=== PATIENT | female | born 1980 | race Caucasian/White ===

== ENCOUNTER → 2018-09-26 | Outpatient (CLI) | payer BC, SELFPAY ==
[2018-09-26 10:17] LABS: Erythrocyte Sedimentation Rate 33 mm/hr (0-20)
[2018-09-26 10:24] LABS: Absolute Lymphocyte Count 1.67 X10^3/ul (0.83-4.51); Absolute Neutrophil Count 3.2 X10^3/uL (2.0-7.7); Basophil# 0.05 X10^3/uL; Basophil% 0.9 % (0-1); Differential Indicated SCAN CRITERIA MET; Eosinophil# 0.27 X10^3/uL; Eosinophils% 4.8 % (0-5); Hematocrit 30.2 % (37-47); Lymphocyte # 1.67 X10^3/ul (4.0); Lymphocyte % 29.6 % (19-41); Mean Corp Hgb Conc 29.8 g/gl (32-36); Mean Corpuscular Volume 73.8 fL (81-99); Mean Platelet Vol. 9.3 fl (6.2-12.0); Monocyte# 0.48 X10^3/uL; Monocyte% 8.5 % (0-10); Neutrophil # 3.17 X10^3/uL (2.7-7.7); Neutrophil % 56.2 % (47-70); POSITIVE COUNT NO; POSITIVE DIFFERENTIAL NO; POSITIVE MORPHOLOGY YES; Platelet Count 327 K/mm3 (150-450); RBC Distribution Width CV 17.4 % (11.6-14.6); Red Blood Count 4.09 M/mm3 (4.2-5.4); White Blood Count 5.6 K/mm3 (4.4-11.0)
[2018-09-26 10:47] LABS: Vitamin D,25 Hydroxy 18.4 ng/mL (29.95-100.01)
[2018-09-26 10:56] LABS: ALB/GLOB Ratio 0.8 RATIO (0.9-2.4); AST(SGOT) 10 U/L (15-37); Alanine Aminotransfer ALT/SGPT 16 U/L (13-56); Albumin, Serum 3.2 g/dL (3.2-5.0); Alkaline Phosphatase 75 U/L (45-117); Anion Gap 7 (5-15); BUN 10 mg/dL (7-18); BUN/Creat Ratio 14.3 RATIO (10-20); Calcium,Total 8.5 mg/dL (8.5-10.1); Chloride 109 mmol/L (98-107); EST Glomerular Filtration Rate 99 mL/min (>60); Est Glom Filt Rate - Afr Amer 120 mL/min (>60); Globulin 4.2 g/dL (2.2-4.2); Glucose 81 mg/dL (74-106); Potassium 4.2 mmol/L (3.5-5.1); Protein, Total 7.4 g/dL (6.4-8.2); Sodium Level 140 mmol/L (136-145); Thyroid Stim Hormone (TSH) 1.78 uIU/mL (0.358-3.74)
[2018-09-26 10:59] LABS: Anisocytosis 2+; Differential Comment SCANNED; Hypochromasia 1+; Microcytosis 2+
== END | disposition home or self-care (01) ==
PROVIDERS: Family Provider Family Medicine; PCP Family Medicine; Referring Provider Family Medicine; Visit Provider Family Medicine
DX: R21 Rash and other nonspecific skin eruption (principal)
CPT/HCPCS: 36415; 80053; 82306; 84443; 85025; 85652

== ENCOUNTER 2018-12-16 06:17 | Emergency (ER) | payer BC, SELFPAY ==
[2018-12-16 06:19] VITALS: BP 178/101; PULSE 112; RESP 18; TEMP 37.7; O2SAT 98; BMI 47.2
[2018-12-16 06:23] VITALS: BP 178/99; PULSE 114; RESP 19; TEMP 37.7; O2SAT 98
[2018-12-16 06:34] VITALS: BP 168/82; PULSE 110; RESP 19; O2SAT 98
--- NOTE | 2018-12-16 06:36 | CT_ITS ---
STUDY: CT ABDOMEN AND PELVIS WITHOUT CONTRAST REASON FOR EXAM: Female, 38 years old. Lower abdominal pain. RADIATION DOSAGE (If Supplied By Facility): CTDIvol = ( 23.96 ) mGy, DLP = ( 1382.89 ) mGycm TECHNIQUE: Transaxial images were obtained from the dome of the diaphragm to the symphysis pubis without oral contrast, and without intravenous contrast. Sagittal and coronal images were reconstructed. Individualized dose optimization techniques were used for this CT. COMPARISON: None. FINDINGS: Mild increase interstitial markings at the lung bases suggestive of atelectasis. The visualized portions of the heart are within normal limits. Normal liver. Normal gallbladder and extrahepatic biliary system. Normal spleen. Normal pancreas. Normal bilateral adrenal glands. 2 small nonobstructive intrarenal calculi are seen in the lower pole calyx of the right kidney the larger measures 3.3 mm. Normal left kidney. There is a small hiatal hernia. Normal small intestine. There are scattered colonic diverticula consistent with diverticulosis. The appendix is visualized and appears normal. Normal abdominal aorta. Normal inferior vena cava. There is borderline retroperitoneal lymphadenopathy with enlarged nodes no greater than 10mm in the short axis diameter. Normal urinary bladder. There is evidence of bilateral tubal ligation. Small amount of free fluid is seen in the cul-de-sac. Mild inflammatory changes are seen in the region of the cul-de-sac. Normal abdominal wall. There are small benign-appearing bilateral inguinal lymph nodes. Normal osseous structures. CT/Abdomen/Pelvis without Cont IMPRESSION: Mild degree of increased markings at the lung bases suggestive of bibasilar atelectasis. Small amount of free fluid in the cul-de-sac with increased markings in the surrounding fat. Correlation with pelvic ultrasound is recommended. There are 2 small nonobstructive intrarenal calculi in the lower pole calyx of the right kidney. Electronically Signed: Akin Callaway, at 8:08 EDT , Service support ,
[2018-12-16 06:47] LABS: Absolute Lymphocyte Count 0.88 X10^3/uL (0.83-4.51); Absolute Neutrophil Count 20.3 X10^3/uL (2.0-7.7); Basophil# 0.04 X10^3/uL; Basophil% 0.2 % (0-1); Eosinophils% 0.5 % (0-5); Hematocrit 32.2 % (37-47); Hemoglobin 9.5 g/dL (12.0-15.0); Lymphocyte # 0.88 X10^3/ul (4.0); Mean Corp Hgb Conc 29.5 g/dL (32-36); Mean Corpuscular Hgb 22.2 pg (27.0-32.0); Mean Corpuscular Volume 75.2 fL (81-99); Mean Platelet Vol. 9.2 fl (6.2-12.0); Monocyte# 0.61 X10^3/uL; Monocyte% 2.8 % (0-10); NRBC Flagged by Analyzer 0 % (0-5); Neutrophil # 20.28 X10^3/uL (2.7-7.7); Neutrophil % 91.9 % (47-70); POSITIVE DIFFERENTIAL YES; Platelet Count 390 K/mm3 (150-450); RBC Distribution Width SD 45.7 fl (35.1-43.9); Red Blood Count 4.28 M/mm3 (4.2-5.4)
[2018-12-16] MEDS: Morphine 4 MG/ML Syringe IV (06:47)
[2018-12-16] MEDS: 0.9% Normal Saline 1,000 ML 125 ML IV (06:47)
[2018-12-16] MEDS: Ondansetron 4 MG/2 ML Vial IV (06:47)
[2018-12-16 06:48] LABS: Differential Indicated SCAN CRITERIA MET
--- NOTE | 2018-12-16 06:59 | ED.VISSUMM ---
- ER Visit Summary Date of Service: 12/16/18 Chief Complaint: [Abdominal pain] History of Present Illness: The patient is a 38 F [since the emergency room with complaint of abdominal pain that started 2 days ago. Patient rates her pain as a 7 or 8 out of 10. Patient describes the pain is mostly in the lower abdomen however she does have some discomfort and soreness in the upper abdomen as well. Patient had nausea and vomiting associated with it. She denies any dysuria. She denies any fevers. Patient was seen by her SALES REPRESENTATIVE ADVERTISING about a month ago and had an ultrasound which was unremarkable and thought she might have endometriosis. Patient states this pain is not associated with her. However in her last menstrual period was December 06. She has had prior C-sections x2 and a tubal ligation.] Physical Examination: [HEJU-PERRLA, EOMI. Cranial nerves II through XII grossly intact. TMs clear. Mucous membranes moist. No adenopathy. Cardiovascular-regular rate and rhythm without murmur or ectopy Lungs-clear to auscultation, chest wall stable without crepitus or subcu emphysema Abdomen-normoactive bowel sounds, soft. Patient has diffuse tenderness to the lower abdomen with some guarding. She has tenderness in the suprapubic region and left lower quadrant. She has minimal discomfort in the epigastric region. Extremities-intact ?4, normal range of motion, normal pulses, atraumatic] Test Results: [CBC with differential obtained showed a white blood cell count of 22,000 and a hemoglobin 9.5, hematocrit 32, placed 390. Chemistries and LFTs pending. CT scan of the abdomen pelvis pending] Emergency Department Course and Treatment: [He was medicated with morphine and Zofran] Treatment Plan: [Care of patient turned over to the morning physician awaiting lab results, CT scan results, and final disposition] Disposition: [Pending] Impression: [Abdominal pain] This note was generated with Payment plugin dictation software. It may contain incorrect words, spelling, and punctuation that were not noted in review of the chart prior to signing ED Disposition - Plan for ED Patient: Referrals: Logan Colorado MD [Primary Care Provider] -
[2018-12-16 07:04] LABS: ALB/GLOB Ratio 0.7 RATIO (0.9-2.4); AST(SGOT) 8 U/L (15-37); Alanine Aminotransfer ALT/SGPT 13 U/L (13-56); Albumin, Serum 3.1 g/dL (3.2-5.0); Alkaline Phosphatase 81 U/L (45-117); Anion Gap 7 (5-15); BUN 10 mg/dL (7-18); BUN/Creat Ratio 12.1 RATIO (10-20); Calcium,Total 8.6 mg/dL (8.5-10.1); Chloride 107 mmol/L (98-107); Creatinine, Serum 0.83 mg/dL (0.55-1.02); EST Glomerular Filtration Rate 81 mL/min (>60); Est Glom Filt Rate - Afr Amer 98 mL/min (>60); Estimated Creatinine Clearance 90.89 ml/min; Globulin 4.7 g/dL (2.2-4.2); Glucose 101 mg/dL (74-106); Lipase 176 U/L (73-393); Potassium 3.7 mmol/L (3.5-5.1); Protein, Total 7.8 g/dL (6.4-8.2); Sodium Level 139 mmol/L (136-145)
[2018-12-16 07:09] LABS: Internal QC Validated? YES +Cl - CLEAR BKGD; Pregnancy, Serum, hCG Quali. NEGATIVE Negative
[2018-12-16 07:19] LABS: Lactic Acid 1.4 mmol/L (0.4-2.0)
[2018-12-16] MEDS: HYDROmorphone 1 MG/ML Syringe IV ×2 (07:42→11:43)
--- NOTE | 2018-12-16 08:14 | US_ITS ---
STUDY: ULTRASOUND OF THE FEMALE PELVIS - COMPLETE REASON FOR EXAM: Female, 38 years old. 2 day history of bilateral pelvic pain. LMP: December 06, 2018. TECHNIQUE: Transabdominal and Transvaginal TECHNICAL QUALITY: Adequate. COMPARISON: Comparison is made with prior CT scan the abdomen and pelvis done earlier in the day. FINDINGS: The uterus is anteverted and is in a midline position. The uterus measures 11.1 cm x 5.8 cm x 4.8 cm. There is a Nabothian cyst of the cervix. The endometrium measures 9 mm in thickness, and is hyperechoic. There is no demonstrated endometrial mass. There is no demonstrated myometrial mass. I.U.D. - The patient does not have an I.U.D. The right ovary is visualized. The right ovary measures 3.9 cm x 3.5 cm x 2.2 cm. There is no right ovarian cyst or ovarian mass. There is no visualized right adnexal mass or complex lesion. There is normal arterial and normal venous vascularity. The left ovary is visualized. The left ovary measures 4.6 cm x 4.5 cm x 3.0 cm. There is a 2.2 cm x 1.6 cm x 1.8 cm cyst in the right ovary. There is no visualized left adnexal mass or complex lesion. There is normal arterial and normal venous vascularity. There is no fluid in the cul-de-sac. The pre void volume of the bladder was 85 ml. Polycystic ovary disease: No. US/Transvaginal Non- IMPRESSION: 2.2 cm x 1.6 x 1.8 cm cyst in the left ovary. No other abnormality is seen. Electronically Signed: Akin Callaway, at 10:04 EDT , Service support ,
[2018-12-16 09:43] VITALS: BP 160/82; PULSE 84; RESP 18; O2SAT 97
[2018-12-16 10:30] LABS: Red Blood Cells-Urine 0 SEEN /hpf (0-5)
[2018-12-16 10:34] LABS: Color, Urine Amber (Yellow); Glucose, Dipstick Normal (Normal); Ketone-Dipstick Negative (Negative); Leukocyte Esterase-Dipstick 25 /ul (Negative); Nitrite-Dipstick Negative (Negative); Occult Blood-Urine 10 /ul (Negative); Protein-Dipstick 30 mg/dl (Negative); Urine Bilirubin Dipstick Negative (Negative); Urine Clarity Sl. Cloudy (Clear); Urine Urobilinogen Normal (Normal)
[2018-12-16 10:49] LABS: Squamous Epithelial Cells - UA 5-10 SEEN /hpf (5-10); White Blood Cells 0-5 SEEN /hpf (0-5)
[2018-12-16 10:50] LABS: Bacteria RARE /hpf (None Seen); Mucous, Urine 1+ /hpf (<or=2+)
--- NOTE | 2018-12-16 10:56 | NURSING ---
DR FORTE PAGED AND RETURNED CALL
--- NOTE | 2018-12-16 11:00 | NURSING ---
PAGED DR IRELAND
--- NOTE | 2018-12-16 11:19 | ED.DEP ---
ED Disposition - Plan for ED Patient: Disposition: Home or Assisted Living Prescriptions: Ciprofloxacin [Cipro] 500 mg PO BID #14 tab Prescription Printed metroNIDAZOLE [Flagyl] 500 mg PO Q8H #21 tab Prescription Printed Oxycodone HCl/Acetaminophen [Percocet 5/325] 1 tab PO Q6H PRN PRN 3 Days #12 tab PRN Reason: Pain Prescription Printed Ondansetron [Zofran Odt] 4 mg PO Q6H PRN PRN #10 tab PRN Reason: Nausea Prescription Printed Referrals: Logan Colorado MD [Primary Care Provider] - (in 1-2 days for repeat exam )
--- NOTE | 2018-12-16 11:32 | ED.RN ---
pt nauseated. has consumed 3 glasses of water in short period of time
[2018-12-16 12:51] VITALS: BP 138/74; PULSE 61; RESP 15; O2SAT 99
== END 2018-12-16 12:54 | disposition home or self-care (01) ==
PROVIDERS: Emergency Medicine; Emergency Provider Emergency Medicine; Family Provider Family Medicine; PCP Family Medicine
DX: K52.9 Noninfective gastroenteritis and colitis, unspecified (principal); R10.9 Unspecified abdominal pain; K57.30 Diverticulosis of large intestine without perforation or abscess without bleeding; Z72.0 Tobacco use
CPT/HCPCS: 74176; 76830; 80053; 81001; 83605; 83690; 84703; 85025; 96361; 96374; 96375; 96376; 99284; J7030; A4216; J2405

== ENCOUNTER 2018-12-19 09:31 | Emergency (ER) | payer BC, SELFPAY ==
[2018-12-19 09:33] VITALS: BP 167/104; PULSE 127; RESP 18; TEMP 36.6; O2SAT 99; BMI 46.0
[2018-12-19 09:45] VITALS: TEMP 37.4
--- NOTE | 2018-12-19 09:46 | CT_ITS ---
STUDY: CT ABDOMEN AND PELVIS WITH CONTRAST REASON FOR EXAM: Female, 38 years old. Lower abdominal pain and fever. RADIATION DOSAGE (If Supplied By Facility): CTDIvol = ( 23.72 ) mGy, DLP = ( 1458.46 ) mGycm TECHNIQUE: Transaxial images were obtained from the dome of the diaphragm to the symphysis pubis with oral contrast. 100 IV/Oral Isovue 300 was administered. Sagittal and coronal images were reconstructed. Individualized dose optimization techniques were used for this CT. COMPARISON: Comparison is made with prior study dated December 16, 2018. FINDINGS: Since prior study, there has been a progression in the right lower lobe infiltrate. The visualized portions of the heart are within normal limits. Small amount of the perihepatic fluid is seen at this time. Mildly distended gallbladder. A small amount of fluid is seen in the hepatorenal space. Normal spleen. Normal pancreas. Normal bilateral adrenal glands. 2 nonobstructive right intrarenal calculi. Normal left kidney. Normal visualized stomach. Normal small intestine. Normal colon. There is non-visualization of the appendix. Normal abdominal aorta. Normal inferior vena cava. There is borderline retroperitoneal lymphadenopathy with enlarged nodes no greater than 10mm in the short axis diameter. Increased markings are seen in the root of the mesentery as well as mid abdomen worse in the left lower quadrant adjacent to small bowel loops. An inflammatory process should be ruled out. Filling defects are seen in the right hemicolon most likely secondary to fecal material. Normal urinary bladder. Small amount of free fluid in the pelvis. There is enlargement of the ovaries bilaterally. There is evidence of bilateral tubal ligation. Normal abdominal wall. Normal osseous structures. CT/Abdomen/Pelvis WITH Contrast IMPRESSION: Progressive infiltrate in the right lower lobe. Small amount of perihepatic fluid as well as fluid in the hepatorenal space. Mildly distended gallbladder. Correlation with ultrasound is recommended. Nonspecific increased markings in the mesentery in the mid and left mid abdomen. Small amount of free fluid in the cul-de-sac. Prominence of the ovaries bilaterally. Electronically Signed: Akin Callaway, at 12:47 EDT , Service support ,
--- NOTE | 2018-12-19 09:49 | ED.DCSUM_ITS ---
History of Present Illness Chief Complaint: Abd Pain Informant: Patient, Family Onset: Days - Diarrhea and left lower quadrant pain started December 14, Month(s) - Initial episode 1 month ago, white lower quadrant/adnexal region Context: Sudden Onset Timing: Continuous Quality: 103.0 ?F, nausea, diarrhea Location: Initially left lower quadrant to right lower quadrant to epigastrium Current Severity: Moderate Maximum Severity: Severe Worsened by: Walking Relieved by: Nothing Associated Symptoms: Persistent fever and pain Narrative: This is a 38-year-old woman who was seen 1 month ago for right-sided abdomen/pelvic pain. She was seen by her cleaning manager who performed a pelvic exam. The pelvic exam was unremarkable according the patient. She apparently went to a water park this past weekend. Everyone in the family had diarrhea. She developed left lower quadrant pain that radiates to the right lower quadrant with elevated temperature. She was seen on December 16, which is a Saturday. Her work-up was marked for an elevated white count and inflammatory changes noted on CAT scan. Ultrasound revealed a cyst. Case was discussed with CONFIGURATION DEVELOPER and PCP. Patient was seen by PCP today and sent to the emergency department. His note was read. He recommended internal exam on his office note. Mother states she had a 16 pound weight loss since onset of pain 1 month ago. She denies night sweats. She reports persistent diarrhea. She has not noted any blood in her diarrhea. Patient states she has had persistent temperature to 103 degrees. The upper abdominal pain resolved. The lower abdominal pain was getting better. Today it is worse. Prior similar symptoms: Yes Recent Illness/Hospitalization: Yes - Past Medical History (1) No significant past medical history Status: Acute Past Medical History - Allergies and Home Meds Allergies/Adverse Reactions: Allergies peanut Adverse Reaction (Verified 12/19/18 09:32) Nausea/Vom/Diarrhea Primary Care Physician: Logan Colorado MD [Primary Care Provider] - Surgical History: noncontributory Lives: Spouse/ Significant Other, With Family Smoking Status: Former smoker Alcohol: Rare Drugs: None Review of Systems General: Reports: Chills, Fever, Malaise, Weight loss Eyes: Denies: Visual changes - bilaterally, Blurred Vision - bilaterally, Diplopia ENT: Reports: - - Lanes of thirst and dry mouth Cardiovascular: Denies: Chest pain, Palpitations Respiratory: Denies: Dyspnea, Cough, Dyspnea on exertion Gastrointestinal: Reports: Abdominal pain, Nausea, Diarrhea. Denies: Vomiting, Constipation, Melena, Hematochezia Genitourinary: Denies: Dysuria, Hematuria, Frequency Musculoskeletal: Denies: Myalgias, Arthralgias, Neck pain, Back pain, Extremity Pain Skin: Denies: Rash, Abscess, Abrasions, Wounds Neurological: Denies: Headache, Weakness, Numbness Hematologic: Denies: Easy bruising, Easy bleeding Allergy: Denies: Uticaria, Swelling of the mouth, Swelling of the tongue Physical Exam Vital Signs/Narrative: Vital Signs Temp Pulse Resp BP Pulse Ox 12/19/18 09:45 99.3 F H 12/19/18 09:33 97.9 F 127 H 18 167/104 H 99 Inital Vital Signs reviewed: Yes General: Well nourished, Well developed, Obese, Acute Distress Head: Normocephalic, Atraumatic Eyes: Perrl, EOMI. Negative for: Pale conjunctiva, Scleral icterus, - ENT: No rhinorrhea, Dry mucous membranes Neck: Supple, Nontender, No lymphadenopathy, No JVD, - Cardiovascular: Regular rhythm, No murmurs, Normal S1, Normal S2, Tachycardia Respiratory: No distress, CTA bilaterally, Chest nontender Abdomen: Soft, No masses, Tender, Guarding, Rebound tenderness, Hypoactive bowel sounds. Negative for: Nontender, Nondistended, Normal bowel sounds, Hepatomegaly, Splenomegaly, Mass Rectal: Deferred Back: Nontender, Normal Inspection. Negative for: CVA tenderness, Spinal tenderness Extremities: Nontender, No edema Skin: Normal color, No rash, No Trauma. Negative for: Cyanosis, Diaphoresis, Jaundice Neurological: Alert, Oriented x3, Cranial nerves II-XII grossly intact, Normal Strength, Normal Sensation Psychological: Normal affect, Normal Mood Diagnostic/Tx/Re-eval Impressions Abdomen/Pelvis CT 12/19/18 09:46 IMPRESSION: Progressive infiltrate in the right lower lobe. Small amount of perihepatic fluid as well as fluid in the hepatorenal space. Mildly distended gallbladder. Correlation with ultrasound is recommended. Nonspecific increased markings in the mesentery in the mid and left mid abdomen. Small amount of free fluid in the cul-de-sac. Prominence of the ovaries bilaterally. Electronically Signed: Akin Callaway, at 12:47 EDT , Service support , 12/19/18 09:46 Abdomen/Pelvis WITH Contrast [CT] Stat Laboratory Results 12/19/18 12/19/18 12/19/18 10:08 10:08 10:08 WBC 11.5 H RBC 3.89 L Hgb 8.7 L Hct 28.6 L MCV 73.5 L MCH 22.4 L MCHC 30.4 L RDW Std Deviation 44.5 H RDW Coeff of Herson 16.7 H Plt Count 315 MPV 10.3 Immature Gran % (Auto) 0.700 Neut % (Auto) 85.4 H Lymph % (Auto) 6.2 L Zavala % (Auto) 5.1 Eos % (Auto) 2.3 Baso % (Auto) 0.3 Absolute Neuts (auto) 9.8 H Absolute Lymphs (auto) 0.71 L Nucleated RBC % 0.2 Sodium 134 L Potassium 3.5 Chloride 100 Carbon Dioxide 26.0 Anion Gap 8 BUN 11 Creatinine 0.85 Estim Creat Clear Calc 88.75 Est GFR (MDRD) Af Amer 95 Est GFR (MDRD) Non-Af 79 BUN/Creatinine Ratio 13.0 Glucose 90 Lactic Acid 1.2 Calcium 8.4 L White count has improved. There is no evidence of renal failure. Lactate is normal. There is an infiltrate right lower lobe since prior study. Will add Augmentin to cover organisms for community acquired pneumonia. Inflammatory changes are slightly worse. There is no evidence of diverticulitis. There is no evidence of abscess. - Medical Decision Making She is tachycardic and tachypneic in spite of what was documented by triage nurse. She is not febrile. She does have peritoneal findings. Since the work- up on Saturday was not definitive however there was abnormal inflammatory changes noted with a high white count will repeat CAT scan as well as blood work. She received IV fluids. Antibiotics were not administered since she is on appropriate antibiotics for diarrhea. Stool for enteric pathogens was ordered since she is still having diarrhea. In my professional medical opinion the pelvic exam is not warranted since she has GI symptoms had inflammatory changes noted on CAT scan that were felt to be GI and not gynecologic. Patient was prescribed Augmentin. Since her numbers are better she has not vomited during her stay and is resting comfortably when she was reexamined at 1405 will discharge to home. Mother had many questions and voiced her frustrations. Mother was informed since things are getting better it is not inappropriate to send her home. ED Disposition - Plan for ED Patient: Disposition: Home or Assisted Living Diagnosis: Community acquired pneumonia, Colitis, acute Instructions: DIARRHEA, Unk Cause (Adult) Report Pendg, PNEUMONIA (Adult) Prescriptions: Amox/Clavulanate Tablet [Augmentin Tablet] 875 mg PO Q12H #14 tab Transmission Status: Pending to [facility]/pharmacy #[id number] Oxycodone HCl/Acetaminophen [Percocet 5/325] 1 tablet PO Q6H PRN PRN 3 Days #12 tablet PRN Reason: Pain Transmission Status: Received by [facility]/pharmacy #[id number] Referrals: Logan Colorado MD [Primary Care Provider] - 3-5 Days if not improving Additional Instructions: Your prescriptions were electronically transmitted to [facility] pharmacy located on back [facility]
[2018-12-19] MEDS: 0.9% Normal Saline 1,000 ML 1000 ML IV (10:13)
[2018-12-19] MEDS: Ondansetron 4 MG/2 ML Vial IV (10:13)
[2018-12-19] MEDS: Morphine 4 MG/ML Syringe IV ×2 (10:16→12:42)
[2018-12-19 10:19] LABS: Absolute Lymphocyte Count 0.71 X10^3/uL (0.83-4.51); Absolute Neutrophil Count 9.8 X10^3/uL (2.0-7.7); Basophil# 0.04 X10^3/uL; Basophil% 0.3 % (0-1); Eosinophil# 0.26 X10^3/uL; Eosinophils% 2.3 % (0-5); Hematocrit 28.6 % (37-47); Hemoglobin 8.7 g/dL (12.0-15.0); Lymphocyte # 0.71 X10^3/ul (4.0); Lymphocyte % 6.2 % (19-41); Mean Corp Hgb Conc 30.4 g/dL (32-36); Mean Corpuscular Hgb 22.4 pg (27.0-32.0); Mean Corpuscular Volume 73.5 fL (81-99); Mean Platelet Vol. 10.3 fl (6.2-12.0); Monocyte# 0.59 X10^3/uL; Monocyte% 5.1 % (0-10); NRBC Flagged by Analyzer 0.2 % (0-5); Neutrophil # 9.81 X10^3/uL (2.7-7.7); Neutrophil % 85.4 % (47-70); Platelet Count 315 K/mm3 (150-450); RBC Distribution Width CV 16.7 % (11.6-14.6); RBC Distribution Width SD 44.5 fl (35.1-43.9); Red Blood Count 3.89 M/mm3 (4.2-5.4); White Blood Count 11.5 K/mm3 (4.4-11.0)
[2018-12-19 10:31] LABS: Anion Gap 8 (5-15); BUN 11 mg/dL (7-18); Calcium,Total 8.4 mg/dL (8.5-10.1); Chloride 100 mmol/L (98-107); Creatinine, Serum 0.85 mg/dL (0.55-1.02); EST Glomerular Filtration Rate 79 mL/min (>60); Est Glom Filt Rate - Afr Amer 95 mL/min (>60); Estimated Creatinine Clearance 88.75 ml/min; Glucose 90 mg/dL (74-106); Potassium 3.5 mmol/L (3.5-5.1); Sodium Level 134 mmol/L (136-145)
[2018-12-19 10:43] LABS: Lactic Acid 1.2 mmol/L (0.4-2.0)
[2018-12-19] MEDS: Amox/Clavulanate 875 MG Tablet PO (14:37)
[2018-12-19 14:55] VITALS: BP 126/91; PULSE 112; RESP 16; O2SAT 98
== END 2018-12-19 14:57 | disposition home or self-care (01) ==
PROVIDERS: Emergency Provider Emergency Medicine; Family Provider Family Medicine; PCP Family Medicine
DX: J18.9 Pneumonia, unspecified organism (principal); K52.9 Noninfective gastroenteritis and colitis, unspecified; E66.9 Obesity, unspecified; Z87.891 Personal history of nicotine dependence
CPT/HCPCS: 74177; 80048; 83605; 85025; 87040; 96361; 96374; 96375; 96376; 99283; J7030; Q9967; A4216; J2405

== ENCOUNTER → 2018-12-25 | Outpatient (CLI) | payer BC, SELFPAY ==
[2018-12-19 09:33] VITALS: BMI 46.0
--- NOTE | 2018-12-25 15:37 | RAD_ITS ---
STUDY: X-RAY CHEST REASON FOR EXAM: Female, 38 years old. Fever, right lung consolidation on prior imaging. TECHNIQUE: PA and lateral views of the chest. COMPARISON: CT abdomen and pelvis December 19, 2018. FINDINGS: Subsegmental density persists in the right lung base, accompanied by some elevation of the right diaphragm. This is likely atelectasis, but infection is difficult to exclude. Fairly similar but lesser atelectasis in the left lung base on CT is not clearly demonstrated here. There is no demonstrated pleural abnormality. Normal size heart. Normal mediastinum and robert. Normal visualized pulmonary arteries. Normal visualized aortic arch and descending thoracic aorta. Normal visualized thoracic spine. Normal visualized ribs, clavicles, and shoulders. There is no demonstrated abnormality of the visualized soft tissue structures of the upper abdomen. RAD/Chest PA and Lateral IMPRESSION: Right base subsegmental atelectasis and elevated right diaphragm again noted. Infection difficult to exclude. Electronically Signed: Pranay Stovall MD at 16:35 EDT , Service support ,
[2018-12-25 17:25] LABS: Absolute Lymphocyte Count 1.45 X10^3/uL (0.83-4.51); Basophil# 0.03 X10^3/uL; Basophil% 0.4 % (0-1); Eosinophil# 0.28 X10^3/uL; Eosinophils% 3.3 % (0-5); Hematocrit 30.1 % (37-47); Hemoglobin 8.7 g/dL (12.0-15.0); Lymphocyte # 1.45 X10^3/ul (4.0); Lymphocyte % 17.3 % (19-41); Mean Corp Hgb Conc 28.9 g/dL (32-36); Mean Corpuscular Hgb 21.6 pg (27.0-32.0); Mean Corpuscular Volume 74.9 fL (81-99); Mean Platelet Vol. 10.6 fl (6.2-12.0); Monocyte# 0.54 X10^3/uL; Monocyte% 6.4 % (0-10); NRBC Flagged by Analyzer 0 % (0-5); Neutrophil # 5.99 X10^3/uL (2.7-7.7); Neutrophil % 71.5 % (47-70); Platelet Count 538 K/mm3 (150-450); RBC Distribution Width CV 17.2 % (11.6-14.6); RBC Distribution Width SD 46.2 fl (35.1-43.9); Red Blood Count 4.02 M/mm3 (4.2-5.4); White Blood Count 8.4 K/mm3 (4.4-11.0)
[2018-12-25 17:49] LABS: ALB/GLOB Ratio 0.6 RATIO (0.9-2.4); AST(SGOT) 17 U/L (15-37); Alanine Aminotransfer ALT/SGPT 11 U/L (13-56); Albumin, Serum 2.7 g/dL (3.2-5.0); Alkaline Phosphatase 60 U/L (45-117); Anion Gap 10 (5-15); BUN 10 mg/dL (7-18); BUN/Creat Ratio 13.6 RATIO (10-20); Calcium,Total 8.6 mg/dL (8.5-10.1); Chloride 103 mmol/L (98-107); Creatinine, Serum 0.74 mg/dL (0.55-1.02); EST Glomerular Filtration Rate 93 mL/min (>60); Est Glom Filt Rate - Afr Amer 112 mL/min (>60); Globulin 4.7 g/dL (2.2-4.2); Glucose 88 mg/dL (74-106); Potassium 3.1 mmol/L (3.5-5.1); Protein, Total 7.4 g/dL (6.4-8.2); Sodium Level 141 mmol/L (136-145)
[2018-12-26 10:35] LABS: Ferritin 36 ng/mL (8-252); Iron 16 ug/dL (50-170); Iron Binding Capacity,Total 273 ug/dL (250-450); PERCENT IRON SATURATION 5.9 % (15.0-55.0)
== END | disposition home or self-care (01) ==
PROVIDERS: Family Provider Family Medicine; PCP Family Medicine; Referring Provider Family Medicine; Visit Provider Family Medicine
DX: J18.1 Lobar pneumonia, unspecified organism (principal); D50.9 Iron deficiency anemia, unspecified; R19.7 Diarrhea, unspecified
CPT/HCPCS: 36415; 71046; 80053; 82728; 83540; 83550; 83735; 85025

== ENCOUNTER → 2018-12-26 | Outpatient (CLI) | payer BC, SELFPAY ==
[2018-12-19 09:33] VITALS: BMI 46.0
[2018-12-31 10:18] LABS: Fats, Neutral Normal (.); Fats, Total Normal (.)
== END | disposition home or self-care (01) ==
LOC: LABSPEC 07:43
PROVIDERS: Family Provider Family Medicine; PCP Family Medicine; Referring Provider Family Medicine; Visit Provider Family Medicine
DX: R19.7 Diarrhea, unspecified (principal)
CPT/HCPCS: 82274; 82705; 83630; 87177; 87209; 87493; 87506

== ENCOUNTER → 2018-12-31 | Outpatient (CLI) | payer BC, SELFPAY ==
[2018-12-19 09:33] VITALS: BMI 46.0
--- NOTE | 2018-12-31 09:49 | RAD_ITS ---
STUDY: X-RAY CHEST REASON FOR EXAM: Female, 38 years old. Epigastric pain TECHNIQUE: PA and lateral views of the chest. COMPARISON: 12/25/2018 FINDINGS: Stable elevation of right hemidiaphragm Stable subsegmental density in the right lung base. There is no demonstrated pleural abnormality. Normal size heart. Normal mediastinum and robert. Normal visualized pulmonary arteries. Normal visualized aortic arch and descending thoracic aorta. Normal visualized thoracic spine. Normal visualized ribs, clavicles, and shoulders. There is no demonstrated abnormality of the visualized soft tissue structures of the upper abdomen. RAD/Chest PA and Lateral IMPRESSION: No interval change Electronically Signed: Pranay Fung MD at 16:55 EDT , Service support ,
[2018-12-31 12:24] LABS: Absolute Lymphocyte Count 1.64 X10^3/uL (0.83-4.51); Absolute Neutrophil Count 5.4 X10^3/uL (2.0-7.7); Basophil# 0.07 X10^3/uL; Basophil% 0.9 % (0-1); Eosinophil# 0.34 X10^3/uL; Eosinophils% 4.3 % (0-5); Hematocrit 30.4 % (37-47); Hemoglobin 8.8 g/dL (12.0-15.0); Lymphocyte # 1.64 X10^3/ul (4.0); Lymphocyte % 20.7 % (19-41); Mean Corp Hgb Conc 28.9 g/dL (32-36); Mean Corpuscular Hgb 21.9 pg (27.0-32.0); Mean Corpuscular Volume 75.8 fL (81-99); Mean Platelet Vol. 9.9 fl (6.2-12.0); Monocyte# 0.49 X10^3/uL; Monocyte% 6.2 % (0-10); NRBC Flagged by Analyzer 0 % (0-5); Neutrophil # 5.35 X10^3/uL (2.7-7.7); Neutrophil % 67.6 % (47-70); Platelet Count 387 K/mm3 (150-450); RBC Distribution Width CV 17.8 % (11.6-14.6); RBC Distribution Width SD 48.1 fl (35.1-43.9); Red Blood Count 4.01 M/mm3 (4.2-5.4); White Blood Count 7.9 K/mm3 (4.4-11.0)
[2018-12-31 12:42] LABS: Amylase 34 U/L (25-115); Anion Gap 4 (5-15); BUN 11 mg/dL (7-18); BUN/Creat Ratio 12.8 RATIO (10-20); Calcium,Total 8.7 mg/dL (8.5-10.1); Chloride 106 mmol/L (98-107); Creatinine, Serum 0.86 mg/dL (0.55-1.02); EST Glomerular Filtration Rate 78 mL/min (>60); Est Glom Filt Rate - Afr Amer 94 mL/min (>60); Glucose 86 mg/dL (74-106); Lipase 306 U/L (73-393); Potassium 4.1 mmol/L (3.5-5.1); Sodium Level 140 mmol/L (136-145)
== END | disposition home or self-care (01) ==
LOC: MTLAB 09:48
PROVIDERS: Family Provider Family Medicine; PCP Family Medicine; Referring Provider Family Medicine; Visit Provider Family Medicine
DX: R91.8 Other nonspecific abnormal finding of lung field (principal); R10.9 Unspecified abdominal pain; E87.6 Hypokalemia
CPT/HCPCS: 36415; 71046; 80048; 82150; 83690; 85025

== ENCOUNTER → 2019-01-03 | Outpatient (CLI) | payer BC, SELFPAY ==
[2018-12-19 09:33] VITALS: BMI 46.0
--- NOTE | 2019-01-03 10:08 | US_ITS ---
STUDY: ABDOMINAL ULTRASOUND - RIGHT UPPER QUADRANT REASON FOR VISIT: Female, 38 years old. Abdominal pain TECHNIQUE: Ultrasound evaluation of the right upper quadrant was performed with real-time and static johansen-scale imaging. TECHNICAL QUALITY: Adequate. COMPARISON: CT dated 12/19/2018. FINDINGS: Liver: The liver measures 16.7 cm. There is normal echogenicity of the liver. The bile ducts are within normal limits. There is hepatic color flow. The direction of portal flow is hepatopetal. There is no demonstrated mass lesion. Gallbladder: Normal distended gallbladder. The gallbladder wall measures 3 mm. There is a negative sonographic Cortes's sign. There is no pericholecystic fluid. There are no gallstones. Common Bile Duct (C.B.D.): The common bile duct measures 3 mm. Pancreas: Normal size of the head, body and tail of the pancreas. There is normal echogenicity of the pancreas. There is no demonstrated pancreatic mass or cyst. Right Kidney: Normal size of the right kidney. The right kidney measures 12.5 cm. Normal renal cortex. There is no demonstrated renal mass or cyst. There is a 6 mm nonobstructing right renal stone. There is no right hydronephrosis. US/Abdomen Limited IMPRESSION: 6 mm nonobstructing right renal stone. No hydronephrosis. Otherwise, unremarkable right upper quadrant ultrasound. Electronically Signed: Pelon Monroe, at 13:59 EDT Tel , Service support ,
== END | disposition home or self-care (01) ==
PROVIDERS: Family Provider Family Medicine; PCP Family Medicine; Referring Provider Family Medicine; Visit Provider Family Medicine
DX: R10.9 Unspecified abdominal pain (principal)
CPT/HCPCS: 76705

== ENCOUNTER → 2019-01-15 16:28 | Outpatient (CLI) | payer BC, SELFPAY ==
[2018-12-19 09:33] VITALS: BMI 46.0
--- NOTE | 2019-01-15 16:30 | RAD_ITS ---
STUDY: X-RAY CHEST REASON FOR EXAM: Female, 38 years old. Previous abnormal chest x-ray. TECHNIQUE: Frontal and lateral views of the chest. COMPARISON: 12/31/2018. FINDINGS: The lungs are clear and expanded. There is no demonstrated pleural abnormality. Normal size heart. Normal mediastinum and robert. Normal visualized pulmonary arteries. Normal visualized aortic arch and descending thoracic aorta. Normal visualized thoracic spine. Normal visualized ribs, clavicles, and shoulders. There is no demonstrated abnormality of the visualized soft tissue structures of the upper abdomen. RAD/Chest PA and Lateral IMPRESSION: Normal x-ray examination of the chest. Electronically Signed: Leandro Hanks MD at 22:03 EDT , Service support ,
== END ==
PROVIDERS: Family Provider Family Medicine; PCP Family Medicine; Referring Provider Family Medicine; Visit Provider Family Medicine
DX: R91.8 Other nonspecific abnormal finding of lung field (principal)
CPT/HCPCS: 71046

== ENCOUNTER → 2019-01-19 18:04 | Outpatient (CLI) | payer BC, SELFPAY | PROVIDERS: Family Provider Family Medicine; PCP Family Medicine; Referring Provider Obstetrics & Gynecology; Visit Provider Obstetrics & Gynecology | DX: Z12.4 Encounter for screening for malignant neoplasm of cervix (principal) ==

== ENCOUNTER 2021-04-10 09:18 | Emergency (ER) | payer BC, SELFPAY ==
[2021-04-10 09:19] VITALS: BP 140/101; PULSE 84; RESP 16; TEMP 36.2; O2SAT 99; BMI 44.5
--- NOTE | 2021-04-10 09:56 | CT_ITS ---
STUDY: CT ABDOMEN AND PELVIS WITH CONTRAST REASON FOR EXAM: Female, 40 years old. 3 day history of abdominal pain. Nausea. RADIATION DOSAGE (If Supplied By Facility): CTDIvol = ( 22.06 ) mGy, DLP = ( 1446.23 ) mGycm TECHNIQUE: Transaxial images were obtained from the dome of the diaphragm to the symphysis pubis without oral contrast. IV 100mL Isovue-300 was administered. Sagittal and coronal images were reconstructed. Individualized dose optimization techniques were used for this CT. COMPARISON: Comparison is made with prior study 12/19/2018. FINDINGS: Minimal increased markings in the anterior medial aspect of the right middle lobe suggestive of atelectasis and/or scarring. The visualized portions of the heart are within normal limits. Normal liver. Normal gallbladder and extrahepatic biliary system. Normal spleen. Normal pancreas. Normal bilateral adrenal glands. There are 2 adjacent nonobstructive calculi in the lower pole calyx of the right kidney. The larger calculus measures 3 mm. Normal left kidney. Normal visualized stomach. Normal small intestine. There are scattered colonic diverticula consistent with diverticulosis. The appendix is visualized and appears normal. Normal abdominal aorta. Normal inferior vena cava. There is borderline retroperitoneal lymphadenopathy with enlarged nodes no greater than 10mm in the short axis diameter. Normal urinary bladder. There is a 5.4 cm x 5.5 cm cyst in the right ovary. There is evidence of a bilateral tubal ligation clips. Normal abdominal wall. Normal osseous structures. CT/Abdomen/Pelvis W IV Cont ONLY IMPRESSION: 5.4 cm x 5.5 cm cyst in the right ovary. Scattered sigmoid diverticula. Nonobstructive calculi in the lower pole calyx of the right kidney. Electronically Signed: Akin Callaway MD at 10:54 EST , Service support ,
--- NOTE | 2021-04-10 09:57 | ED.VIS.GI ---
HPI HPI - GI History of Present Illness Chief Complaint: Abd Pain Narrative Narrative: 40-year-old female presenting with abdominal pain which is fairly diffuse. It has been present for 3 days. Patient states that when she eats a particular kind of pizza it makes her have a lot of cramping and bloating as well as nausea. The patient ate this pizza on Saturday and now has the same symptoms she had in the past with her more severe. Patient states that she has been having small amounts of stool since Saturday. She states she had a fairly large bowel movement this morning. She admits to decreased p.o. intake which she relates is because of her abdominal pain but she does not have nausea or vomiting. No urinary complaints. No history of kidney stones. She denied a fever or chills. PFSH PFSH Home Medications ciprofloxacin HCl 500 mg PO BID #14 tab 12/16/18 [Rx Last Taken 12/18/18] metronidazole 500 mg PO Q8H #21 tab 12/16/18 [Rx Last Taken 12/18/18] ondansetron 4 mg PO Q6H PRN PRN #10 tab 12/16/18 [Rx Last Taken 12/19/18] amoxicillin-pot clavulanate 875 mg PO Q12H #14 tab 12/19/18 [Rx Last Taken Unknown] Allergy/AdvReac Type Severity Reaction Status Date / Time peanut AdvReac Nausea/Vom/ Verified 04/10/21 09:19 Diarrhea Social History Smoking Status: Former smoker ROS ROS ED Constitutional Constitutional ED: Denies chills or fever(s) ENT ENT ED: Denies rhinorrhea or sore throat Cardiovascular Cardiovascular: Denies chest pain or palpitations Respiratory/Chest Respiratory/Chest: Denies cough, dyspnea or sputum Gastrointestinal Gastrointestinal: Reports abdominal pain and constipation; Denies diarrhea Genitourinary Genitourinary ED: Denies dysuria or hematuria Musculoskeletal Musculoskeletal: Denies arthralgias or myalgias Integumentary Denies abscess or rash Neurologic Neurologic: Denies headache(s) or weakness EXAM Physical Exam Const Vital Signs: 04/10/21 09:19 04/10/21 11:21 Temperature 97.2 F L Temperature Source Temporal Pulse Rate 84 Respiratory Rate 16 16 Blood Pressure 140/101 H Blood Pressure Mean 114 Pulse Ox 99 Oxygen Delivery Method Room Air Positive well nourished General Appearance ED: NAD; Negative for pallor HEENT Reports moist mucous membranes normocephalic Eyes PERRL and EOMs intact bilaterally Resp normal respiratory effort and clear to auscultation bilaterally Cardio regular rate and regular rhythm GI GI Narrative: Generalized nonlocalizable abdominal tenderness. Negative Cortes sign. Palpation: soft Back/Spine no CVA tenderness Neuro Sensorium / Orientation: alert, oriented to person, oriented to place and oriented to time Psych mental status grossly normal Skin General Skin Exam: Negative for jaundice or pallor MDM MDM MDM Narrative Medical decision making narrative: Patient presenting with abdominal pain which is fairly diffuse. The only place she is not tender is in the right upper quadrant. Blood work is obtained and she has a slight leukocytosis at 11.6. Hemoglobin hematocrit are stable. Platelets are normal. LFTs, renal function, electrolytes are normal. Lipase is negative. Urinalysis is negative for infection. I obtained a CT of the abdomen pelvis which shows an ovarian cyst on the right as well as nonobstructing stones on the right in the kidney. Patient counseled on findings of the CT. There is no inflammation over the although her insists that this is a gallbladder issue. I counseled her that her liver function was normal. She is not tender in the right upper quadrant area, however her recommends that she get an ultrasound of the gallbladder to make sure that it is okay. This was obtained and her ultrasound was normal. Patient counseled on these findings. Patient will be given follow-up with her primary care doctor and Dr. Talamantes. Impression: 1. Abdominal pain 2. Ovarian cyst Lab Data Attestation: I reviewed the patient's lab results. Labs: Laboratory Results - last 24 hr 04/10/21 04/10/21 04/10/21 09:50 09:50 09:50 WBC 11.6 H RBC 4.69 Hgb 10.7 L Hct 35.5 L MCV 75.7 L MCH 22.8 L MCHC 30.1 L RDW Std Deviation 49.6 H RDW Coeff of Herson 18.5 H Plt Count 344 MPV 10.0 Immature Gran % (Auto) 0.300 Neut % (Auto) 71.6 H Lymph % (Auto) 18.7 L [place] % (Auto) 5.8 Eos % (Auto) 3.1 Baso % (Auto) 0.5 Absolute Neuts (auto) 8.3 H Absolute Lymphs (auto) 2.17 Nucleated RBC % 0 Sodium 140 Potassium 3.7 Chloride 110 H Carbon Dioxide 25.0 Anion Gap 5 BUN 11 Creatinine 0.89 Estim Creat Clear Calc 83.07 Est GFR (MDRD) Af Amer 89 Est GFR (MDRD) Non-Af 74 BUN/Creatinine Ratio 12.4 Glucose 92 Calcium 8.9 Total Bilirubin 0.50 AST 13 L ALT 20 Alkaline Phosphatase 89 Total Protein 8.1 Albumin 3.3 Globulin 4.8 H Albumin/Globulin Ratio 0.7 L Lipase 74 Urine Color Yellow Urine Clarity Clear Urine pH 5.0 Ur Specific [place] 1.025 Urine Protein 30 H Urine Glucose (UA) Normal Urine Ketones 5 H Urine Occult Blood Negative Urine Nitrite Negative Urine Bilirubin Negative Urine Urobilinogen Normal Ur Leukocyte Esterase 25 H Urine RBC 0 SEEN Urine WBC 0 SEEN Ur Squamous Epith Cells 5-10 SEEN Urine Bacteria 0 SEEN Urine Mucus 0 SEEN Radiography Diagnostic Testing: Clinical Impression(s) from Imaging Studies Abdomen/Pelvis CT 04/10/21 09:56 IMPRESSION: 5.4 cm x 5.5 cm cyst in the right ovary. Scattered sigmoid diverticula. Nonobstructive calculi in the lower pole calyx of the right kidney. Electronically Signed: Akin Callaway MD at 10:54 EST , Service support , Gallbladder Ultrasound 04/10/21 11:34 IMPRESSION: Normal right upper quadrant ultrasound examination. Possible nonobstructing right renal stones. Electronically Signed: Eddy Fernandes MD at 13:17 EST Tel , Service support , Discharge Plan Triage Chief Complaint: Abd Pain ED Provider: Maxim Montaño Dx/Rx/DC Orders Instructions: ED Abdominal Pain Unkn Cause Fem, ED Ovarian Cyst Prescriptions: No Action metronidazole 500 MG tablet 500 mg PO Q8H Qty: 21 RF: 0 ciprofloxacin HCl 500 MG tablet 500 mg PO BID Qty: 14 RF: 0 ondansetron 4 MG tablet 4 mg PO Q6H PRN PRN (Reason: Nausea) Qty: 10 RF: 0 amoxicillin-pot clavulanate 875 MG tablet 875 mg PO Q12H Qty: 14 RF: 0 Primary Care Provider: Logan Colorado Referrals: Logan Colorado MD [Primary Care Provider] - Disposition Disposition: Home, Self Care
[2021-04-10 10:03] LABS: Bacteria 0 SEEN /hpf (None Seen); Mucous, Urine 0 SEEN /hpf (<or=2+); Red Blood Cells-Urine 0 SEEN /hpf (0-5); White Blood Cells 0 SEEN /hpf (0-5)
[2021-04-10 10:07] LABS: Color, Urine Yellow (Yellow); Glucose, Dipstick Normal (Normal); Ketone-Dipstick 5 mg/dl (Negative); Leukocyte Esterase-Dipstick 25 /ul (Negative); Nitrite-Dipstick Negative (Negative); Occult Blood-Urine Negative /ul (Negative); Protein-Dipstick 30 mg/dl (Negative); Specific Gravity, Urine 1.025 (1.002-1.030); Urine Bilirubin Dipstick Negative (Negative); Urine Clarity Clear (Clear); Urine Urobilinogen Normal (Normal)
[2021-04-10 10:08] LABS: Absolute Lymphocyte Count 2.17 X10^3/uL (0.83-4.51); Absolute Neutrophil Count 8.3 X10^3/uL (2.0-7.7); Basophil# 0.06 X10^3/uL; Basophil% 0.5 % (0-1); Eosinophil# 0.36 X10^3/uL; Eosinophils% 3.1 % (0-5); Hematocrit 35.5 % (37-47); Hemoglobin 10.7 g/dL (12.0-15.0); Lymphocyte # 2.17 X10^3/ul (0.83-4.51); Lymphocyte % 18.7 % (19-41); Mean Corp Hgb Conc 30.1 g/dL (32-36); Mean Corpuscular Hgb 22.8 pg (27.0-32.0); Mean Corpuscular Volume 75.7 fL (81-99); Monocyte# 0.67 X10^3/uL; Monocyte% 5.8 % (0-10); NRBC Flagged by Analyzer 0 % (0-5); Neutrophil # 8.31 X10^3/uL (2.7-7.7); Neutrophil % 71.6 % (47-70); Platelet Count 344 K/mm3 (150-450); RBC Distribution Width CV 18.5 % (11.6-14.6); RBC Distribution Width SD 49.6 fl (35.1-43.9); Red Blood Count 4.69 M/mm3 (4.2-5.4); White Blood Count 11.6 K/mm3 (4.4-11.0)
[2021-04-10 10:16] LABS: Squamous Epithelial Cells - UA 5-10 SEEN /hpf (5-10)
[2021-04-10 10:22] LABS: ALB/GLOB Ratio 0.7 RATIO (0.9-2.4); AST(SGOT) 13 U/L (15-37); Alanine Aminotransfer ALT/SGPT 20 U/L (13-56); Albumin, Serum 3.3 g/dL (3.2-5.0); Alkaline Phosphatase 89 U/L (45-117); Anion Gap 5 (5-15); BUN 11 mg/dL (7-18); BUN/Creat Ratio 12.4 RATIO (10-20); Calcium,Total 8.9 mg/dL (8.5-10.1); Chloride 110 mmol/L (98-107); Creatinine, Serum 0.89 mg/dL (0.55-1.02); EST Glomerular Filtration Rate 74 mL/min (>60); Est Glom Filt Rate - Afr Amer 89 mL/min (>60); Estimated Creatinine Clearance 83.07 ml/min; Globulin 4.8 g/dL (2.2-4.2); Glucose 92 mg/dL (74-106); Lipase 74 U/L (73-393); Potassium 3.7 mmol/L (3.5-5.1); Protein, Total 8.1 g/dL (6.4-8.2); Sodium Level 140 mmol/L (136-145)
[2021-04-10 11:21] VITALS: RESP 16
--- NOTE | 2021-04-10 11:34 | US_ITS ---
STUDY: ABDOMINAL ULTRASOUND - RIGHT UPPER QUADRANT REASON FOR VISIT: Female, 40 years old abdominal pain TECHNIQUE: Ultrasound evaluation of the right upper quadrant was performed with real-time and static johansen-scale imaging. TECHNICAL QUALITY: Adequate. COMPARISON: None. FINDINGS: Liver: The liver measures 17.4 cm. There is normal echogenicity of the liver. The bile ducts are within normal limits. There is hepatic color flow. The direction of portal flow is hepatopetal. There is no demonstrated mass lesion. Gallbladder: Normal distended gallbladder. The gallbladder wall measures 2 mm. There is a negative sonographic Cortes''s sign. There is no pericholecystic fluid. There are no gallstones. Common Bile Duct (C.B.D.): The common bile duct measures 2 mm. Pancreas: Normal size of the head, body and tail of the pancreas. There is normal echogenicity of the pancreas. There is no demonstrated pancreatic mass or cyst. Right Kidney: Normal size of the right kidney. The right kidney measures 13.2 cm. Normal renal cortex. The right cortex measures 1.6 cm. There is no demonstrated renal mass or cyst. There is no right hydronephrosis. Suspect small nonobstructing stones lower pole. US/Gallbladder IMPRESSION: Normal right upper quadrant ultrasound examination. Possible nonobstructing right renal stones. Electronically Signed: Eddy Fernandes MD at 13:17 EST Tel , Service support ,
[2021-04-10 14:05] VITALS: BP 135/82; PULSE 81; RESP 18; O2SAT 98
== END 2021-04-10 14:06 | disposition home or self-care (01) ==
PROVIDERS: Emergency Provider Student in an Organized Health Care Education/Training Program; PCP Family Medicine
DX: N83.201 Unspecified ovarian cyst, right side (principal); R10.9 Unspecified abdominal pain; Z87.891 Personal history of nicotine dependence
CPT/HCPCS: 74177; 76705; 80053; 81001; 83690; 85025; 99283; Q9967; A4216

== ENCOUNTER → 2022-10-30 | Outpatient (CLI) | payer BC, SELFPAY ==
[2022-10-30 08:38] LABS: Anion Gap 4 (5-15); BUN 15 mg/dL (7-18); BUN/Creat Ratio 15.6 RATIO (10-20); Calcium,Total 8.9 mg/dL (8.5-10.1); Chloride 110 mmol/L (98-107); Cholesterol 164 mg/dL (200); Creatinine, Serum 0.96 mg/dL (0.55-1.02); EST Glomerular Filtration Rate 67 mL/min (>60); Est Glom Filt Rate - Afr Amer 81 mL/min (>60); Glucose 91 mg/dL (74-106); High Density Lipoprotein 49 mg/dL; Sodium Level 138 mmol/L (136-145); Thyroid Stim Hormone (TSH) 2.65 uIU/mL (0.358-3.74); Triglycerides 99 mg/dL; Very Low Density Lipoprotein 20 mg/dL (5-40)
== END | disposition home or self-care (01) ==
LOC: LAB 07:34
PROVIDERS: PCP Family Medicine; Referring Provider Family Medicine; Visit Provider Family Medicine
DX: Z13.220 Encounter for screening for lipoid disorders (principal); Z13.1 Encounter for screening for diabetes mellitus; Z13.29 Encounter for screening for other suspected endocrine disorder
CPT/HCPCS: 36415; 80048; 80061; 84443